=== PATIENT | male | born 1980 | race Caucasian/White ===

== ENCOUNTER 2017-06-09 15:43 | Emergency (ER) | payer OTHER ==
[~2017-06-09] VITALS: Ht 185.4 cm; Wt 83.9 kg
[~2017-06-09 15:43] MED LIST: ACETAMINOPHEN PO; ALBUTEROL17 GM INH; ASPIRIN81 M1; FLEXERIL PO; HYDROCODON-ACE1 EAC7 PO; IBUPROFEN800 MG PO; KEPPRA500 M1 DOB; MEDROL PO; ULTRAM PO; VIBRAMYCIN100 M1 PO
== END 2017-06-09 17:20 | disposition home or self-care (01) ==
LOC: CED 15:43 → CFTX 15:43
DX: L72.3 Sebaceous cyst (principal); F41.9 Anxiety disorder, unspecified; F32.9 Major depressive disorder, single episode, unspecified; J40 Bronchitis, not specified as acute or chronic; F17.210 Nicotine dependence, cigarettes, uncomplicated
CPT/HCPCS: 10060; 90715; 99282

== ENCOUNTER 2017-06-11 11:26 | Emergency (ER) | payer OTHER ==
[~2017-06-11] VITALS: Ht 154.9 cm; Wt 83.9 kg
== END 2017-06-11 12:58 | disposition home or self-care (01) ==
LOC: CED 11:26 → CFTX 11:26
DX: Z48.817 Encounter for surgical aftercare following surgery on the skin and subcutaneous tissue (principal); Z48.01 Encounter for change or removal of surgical wound dressing; F17.210 Nicotine dependence, cigarettes, uncomplicated
CPT/HCPCS: 99282